=== PATIENT | male | born 2005 | race Two or more races ===

== ENCOUNTER → 2025-04-21 | Outpatient (CLI) | payer MEDICAID, SELFPAY ==
--- NOTE | 2025-04-21 09:00 | XR_ITS ---
Examination: Upper GI series with KUB Esophagram standard Fluoroscopy 22 spot fluoroscopic films of the esophagus and stomach Date and time: April 13, 2025 1011 hours INDICATIONS: Intermittent difficulty swallowing one month. TECHNIQUE AND FINDINGS: Email Manager AP supine abdomen shows moderate stool throughout the colon Patient swallowed thin barium 22 spot fluoroscopic films of the esophagus, 0.49 minutes Primary peristaltic esophageal waves No constricting esophageal lesion No gastroesophageal reflux. There is no stricture at the gastroesophageal junction No esophageal ulceration Peristalsis traverses the stomach normally No gastric mass or ulceration depicted Duodenal bulb expands symmetrically. Duodenal sweep in jejunal loops visualized unremarkable IMPRESSION: Normal esophageal motility No gastric mass deformity or ulceration Negative for active peptic disease duodenum
== END | disposition home or self-care (01) ==
PROVIDERS: PCP Registered Nurse Community Health; Referring Provider Registered Nurse Community Health; Visit Provider Registered Nurse Community Health
DX: T18.128A Food in esophagus causing other injury, initial encounter (principal)
CPT/HCPCS: 74240; A4699